=== PATIENT | female | born 1980 | race Two or more races ===

== ENCOUNTER 2022-05-14 10:42 | Inpatient (IN) | payer MEDICAID ==
[~2022-05-14] VITALS: Ht 149.9 cm; Wt 65.6 kg
[2022-05-14 11:25] LABS: Urine Bacteria NONE SEEN /hpf (None Seen); Urine Blood Negative /uL (Negative); Urine Specific Gravity 1.036 (1.001-1.035); Urine WBC 2 /hpf (0 - 5)
[2022-05-14 11:58] LABS: Basophils # (auto) 0 10 ^3/uL (0-0.2); Basophils % (auto) 0.4 % (0.0-2.0); Eosinophils # (auto) 0.1 10 ^3/uL (0-0.8); Hematocrit 43.1 % (36.0-46.0); Hemoglobin 14.3 g/dL (12.2-16.2); Lymphocytes # (auto) 3.2 10 ^3/uL (0.4-5.4); Lymphocytes % (auto) 38.9 % (10.0-50.0); Mean Corpuscular Hemoglobin 29.6 pg (28.0-32.0); Mean Corpuscular Hgb Conc. 33.2 g/dL (32.0-36.0); Mean Corpuscular Volume 89.1 fL (80.0-100.0); Monocytes # (auto) 0.5 10 ^3/uL (0-1.3); Monocytes % (auto) 6.7 % (0.0-12.0); Neutrophils # (auto) 4.3 10 ^3/uL (1.6-8.6); Nucleated Red Blood Cells % 0.1 %; Red Blood Cells 4.84 10^6/uL (4.0-5.20); Red Cell Distribution Width 12.9 % (11.8-14.3); White Blood Cell 8.1 10^3/uL (4.4-10.8)
[2022-05-14 12:36] LABS: Albumin 3.4 g/dL (3.4-5.0); Calcium 9.1 mg/dL (8.5-10.1); Magnesium 2.1 mg/dL (1.6-2.6); Potassium 3.9 mmol/L (3.5-5.1)
[2022-05-14 12:39] LABS: BUN/Creatinine Ratio 23.1
[2022-05-14 12:41] LABS: Bilirubin, Total 0.3 mg/dL (0.2-1.0); Total Protein 8.1 g/dL (6.4-8.2)
[2022-05-14] MEDS ORDERED: ONDANSETRON HCL 4 MG/2 ML VIAL IV PRN (18:00)
[2022-05-14] MEDS ORDERED: ACETAMINOPHEN 325 MG TAB PO PRN (18:00)
[2022-05-14] MEDS ORDERED: DOCUSATE SOD 100 MG CAP PO PRN (18:00)
[2022-05-14] MEDS ORDERED: DEXTROSE (50%) 50ML SYRG IV PRN (18:00)
[2022-05-14 21:52] VITALS: BP 105/77
[2022-05-14 22:00] VITALS: BP 105/77
[2022-05-14] MEDS: InsuLIN REG 1unit/0.01ml Soln (100units/ml) SC SCH (22:00)
[2022-05-14] MEDS: SODIUM CHLORIDE 0.9% 1,000 ML IV SCH (22:04)
[2022-05-14] MEDS: ACCU-CHEK COMFORT CURVE STRIP VI SCH (22:13)
[2022-05-14] MEDS: HYDROcodone-ACET 5/325MG TAB PO PRN (22:19)
[2022-05-14] MEDS ORDERED: INSREG3 SUBCUT (23:44)
[2022-05-14] MEDS ORDERED: GABA-339 PO (23:44)
[2022-05-14] MEDS ORDERED: METF-371 PO (23:44)
[2022-05-14] MEDS ORDERED: INSU1INJ19 SC (23:44)
[2022-05-15] MEDS: HYDROcodone-ACET 5/325MG TAB PO PRN ×4 (03:05→19:36)
[2022-05-15] MEDS: SODIUM CHLORIDE 0.9% 1,000 ML IV SCH ×2 (04:00→14:24)
[2022-05-15 04:52] VITALS: BP 114/81
[2022-05-15 05:36] LABS: Basophils # (auto) 0 10 ^3/uL (0-0.2); Basophils % (auto) 0.5 % (0.0-2.0); Eosinophils # (auto) 0.1 10 ^3/uL (0-0.8); Hematocrit 42.1 % (36.0-46.0); Lymphocytes # (auto) 2.5 10 ^3/uL (0.4-5.4); Lymphocytes % (auto) 39.7 % (10.0-50.0); Mean Corpuscular Hemoglobin 29.8 pg (28.0-32.0); Mean Corpuscular Hgb Conc. 33.2 g/dL (32.0-36.0); Mean Corpuscular Volume 89.7 fL (80.0-100.0); Monocytes # (auto) 0.6 10 ^3/uL (0-1.3); Monocytes % (auto) 9.2 % (0.0-12.0); Neutrophils # (auto) 3.1 10 ^3/uL (1.6-8.6); Neutrophils % (auto) 48.6 % (37.0-80.0); Nucleated Red Blood Cells % 0.2 %; Red Cell Distribution Width 13.2 % (11.8-14.3); White Blood Cell 6.4 10^3/uL (4.4-10.8)
[2022-05-15 05:37] LABS: Albumin 3.6 g/dL (3.4-5.0); Calcium 8.5 mg/dL (8.5-10.1); Potassium 3.8 mmol/L (3.5-5.1)
[2022-05-15 05:41] LABS: BUN/Creatinine Ratio 26.3; Bilirubin, Total 0.8 mg/dL (0.2-1.0); Total Protein 7.6 g/dL (6.4-8.2)
[2022-05-15] MEDS: InsuLIN REG 1unit/0.01ml Soln (100units/ml) SC SCH ×4 (06:01→22:20)
[2022-05-15] MEDS: ACCU-CHEK COMFORT CURVE STRIP VI SCH ×4 (06:01→22:20)
[2022-05-15] MEDS ORDERED: KETOROLAC TROMETH 30 MG/ML 1ML VIAL IV ONE (06:30)
[2022-05-15 09:00] VITALS: BP 104/73
[2022-05-15] MEDS: PANTOPRAZOLE 40 MG/10 ML VIAL INJ IV SCH (09:28)
[2022-05-15 12:59] VITALS: BP 103/68
[2022-05-15] MEDS ORDERED: KETOROLAC TROMETH 30 MG/ML 1ML VIAL IV PRN (14:15)
[2022-05-15 17:00] VITALS: BP 103/72
[2022-05-15 19:04] LABS: Urine Bacteria FEW /hpf (None Seen); Urine Blood Negative /uL (Negative); Urine Mucus FEW (None Seen); Urine Specific Gravity 1.019 (1.001-1.035); Urine WBC 17 /hpf (0 - 5)
[2022-05-15 21:51] VITALS: BP 116/76
[2022-05-16] MEDS: SODIUM CHLORIDE 0.9% 1,000 ML IV SCH ×2 (00:45→10:00)
[2022-05-16 05:23] LABS: Lipase 144 U/L (73-393)
[2022-05-16 05:28] LABS: Cholesterol 211 mg/dL (< 200); HDL Cholesterol 36 mg/dL (40-59); LDL Cholesterol 150 mg/dL (< 100); Triglycerides 208 mg/dL (< 150)
[2022-05-16 05:30] VITALS: BP 101/59
[2022-05-16] MEDS: ACCU-CHEK COMFORT CURVE STRIP VI SCH ×3 (06:04→17:00)
[2022-05-16] MEDS: InsuLIN REG 1unit/0.01ml Soln (100units/ml) SC SCH ×3 (06:05→17:00)
[2022-05-16] MEDS: HYDROcodone-ACET 5/325MG TAB PO PRN ×2 (06:23→14:00)
[2022-05-16 09:00] VITALS: BP 98/66
[2022-05-16] MEDS: PANTOPRAZOLE 40 MG/10 ML VIAL INJ IV SCH (10:25)
[2022-05-16] MEDS ORDERED: CEFTRIAXONE SODIUM 2 GM in D5W 5% 50 ML IV ONE (12:30)
[2022-05-16 13:00] VITALS: BP 105/73
[2022-05-16] MEDS ORDERED: CIPR500T4 PO (14:25)
[2022-05-16 17:00] VITALS: BP 109/55
== END 2022-05-16 18:56 | disposition home or self-care (01) | DRG 282 ==
LOC: ER 10:42 → OVERFLOW 17:58 → WEST WING 21:52
PROVIDERS: ADMIT Nurse Practitioner Family; ATTEND Hospitalist
DX: K85.90 Acute pancreatitis without necrosis or infection, unspecified (principal); E11.9 Type 2 diabetes mellitus without complications; N39.0 Urinary tract infection, site not specified; R74.8 Abnormal levels of other serum enzymes; Z20.822 Contact with and (suspected) exposure to COVID-19
CPT/HCPCS: 36415; 74176; 76705; 80053; 80061; 81001; 82150; 82962; 83690; 83735; 85025; 86301; 87426; C9113; G0378; J0696; J1815; J1885; J7060